=== PATIENT | female | born 1945 | race Caucasian/White ===

== ENCOUNTER → 2024-02-01 11:00 | Outpatient (REF) | payer OTHER, SELFPAY | LOC: DHVS 11:00 | PROVIDERS: ATTENDING PHYSICIAN Surgery Vascular Surgery; FAMILY PHYSICIAN Nurse Practitioner Adult Health | DX: I77.9 Disorder of arteries and arterioles, unspecified (principal) | CPT/HCPCS: 93922; 93925 ==

== ENCOUNTER → 2024-02-07 06:34 | Day surgery (SDC) | payer OTHER, SELFPAY | LOC: GI 06:34 | PROVIDERS: ATTENDING PHYSICIAN Surgery | DX: Z12.11 Encounter for screening for malignant neoplasm of colon (principal) | CPT/HCPCS: G0121 ==

== ENCOUNTER → 2024-02-10 14:03 | Outpatient (REF) | payer OTHER, SELFPAY | LOC: DHCBC HW 14:03 | PROVIDERS: ATTENDING PHYSICIAN Internal Medicine; FAMILY PHYSICIAN Nurse Practitioner Adult Health | DX: R06.02 Shortness of breath (principal) | CPT/HCPCS: 93306 ==

== ENCOUNTER → 2024-02-11 11:16 | Outpatient (REF) | payer OTHER, SELFPAY | LOC: DHCBC/DCA 11:16 | PROVIDERS: ATTENDING PHYSICIAN Internal Medicine; FAMILY PHYSICIAN Nurse Practitioner Adult Health | DX: R06.02 Shortness of breath (principal) | CPT/HCPCS: 78452; 93017; A9500; J2785 ==

== ENCOUNTER 2024-02-25 07:01 | Day surgery (SDC) | payer OTHER, SELFPAY ==
[2024-02-25] VITALS (22 sets, daily range): BP systolic 116–179; BP diastolic 14–132; BMI 52.5; BMI 23.8
[2024-02-25 07:43] LABS: Blood Urea Nitrogen 19 mg/dl (7-17); Calcium 10.5 mg/dl (8.4-10.2); Carbon Dioxide 30 mmol/L (22-30); Chloride 106 mmol/L (98-107); Estimated Creatinine Clearance 58 ml/min; Glucose 86 mg/dl (70-99); Potassium 3.6 mmol/L (3.5-5.1); Sodium 140 mmol/L (135-145); eGFR 56.95
[2024-02-25 07:45] LABS: APTT 29.3 Sec (23.4-35.0); Hematocrit 32.7 % (37.0-47.0); Hemoglobin 10.3 g/dL (12.0-16.0); INR 1.09; Mean Corp Hgb Conc. 31.5 g/dL (33.0-37.0); Mean Corpuscular Hgb 26.3 pg (27.0-31.0); Mean Corpuscular Volume 83.6 fL (81.0-99.0); Mean Platelet Volume 11.8 fL (7.4-10.4); PT 13.9 Sec (11.4-14.6); Platelet Count 231 10^3/uL (130-400); Red Blood Cell Count 3.91 10^6/uL (4.20-5.40); Red Cell Dist. Width 14.4 % (11.5-14.5); White Blood Cell Count 6.3 10^3/uL (4.8-10.8)
[2024-02-25] MEDS: NSS 177 ML IV (08:03)
--- NOTE | 2024-02-25 08:29 | W.SUR.PREOP ---
Pre-Operative Surgical Note
-
I have examined this patient prior to the performance of the scheduled procedure.
The patient's condition is unchanged from the time of the current History and
Physical and the patient is able to undergo the scheduled procedure.
--- NOTE | 2024-02-25 09:43 | W.IMMPOSTOP ---
Surgical Immed Post Op Note
-
Primary Surgeon: Karlo Rodriguez III, MD
Assisting Surgeon: Isiah Gonzalez MD
Pre-op Diagnosis: PAD
Post-op Diagnosis: PAD
Procedure Performed: Left external iliac IV lithotripsy & stenting, left profunda IV lithotripsy
Anesthesia Type: Sedation
Specimen / Cultures: NA
Estimated Blood Loss: 2cc
Complications: NA
Operative Findings:
Access obtained via right common femoral artery. Angiogram of LLE demonstrated significantly diseased external iliac and severely stenosed ostial profunda disease. IV lithotripsy x90 pulses followed by balloon angioplasty applied to profunda. IV
lithotripsy x160 pulses of external iliac followed by deployment of a [id number] express stent to the external iliac. Post-deployment angiogram demonstrated brisk flow.
--- NOTE | 2024-02-25 20:04 | OR.RPT ---
Operative Report
Operative Report
Date of Operation: 02/25/2024
Pre Op Diagnosis: Peripheral arterial disease with abnormal surveillance duplex, left lower extremity
Post Op Diagnosis: Peripheral arterial disease with abnormal surveillance duplex, left lower extremity
Procedure:
1.) Intravascular lithotripsy of left profunda femoral artery stenosis (7 mm x 60 mm M5+ shockwave balloon)
2.) Intravascular lithotripsy of left external iliac artery stenosis (7 mm x 60 mm M5+ shockwave balloon)
3.) Balloon angioplasty and stenting of left external iliac artery stenosis (7 mm x 37 mm Express LD)
4.) Diagnostic [id number] arteriogram
5.) Diagnostic left lower extremity arteriogram
6.) Ultrasound guided percutaneous access to the right common femoral artery
Surgeon: Karlo Rodriguez III, MD
It Network Administrator: Isiah Gonzalez MD PGY-1
Anesthesia: Sedation with local
Fluoroscopy:
26.3 min
531 mGy
74.19 Gy.cm2
Complications: None
Estimated Blood Loss: Less than 20 cc
History and Indications for Procedure: 78 yo female with PAD and left lower extremity bypass. Abnormal surveillance duplex.
Procedure in Detail: Erin Yeh was correctly identified and placed supine on the operating table. After adequate induction of anesthesia the bilateral groins were prepped and draped in the usual sterile fashion. A timeout was performed with
the nursing and anesthesia staff confirming the patient's identity as well as the nature and laterality of the procedure.
The right common femoral artery was identified under ultrasound guidance. The artery was patent. The superior and inferior aspects of the femoral head were identified with radiographic guidance and marked at the skin level. The proposed puncture
site was infiltrated with local anesthesia. We saved a copy of the ultrasound image to the medical record. Under ultrasound guidance we accessed the [ ] common femoral artery with a micropuncture needle and upsized to a 5 Fr sheath over a eNeura Therapeutic[employer]
wire. The wire and a ShepherGeoSentric hook flush catheter were advanced into the distal abdominal aorta and a diagnostic aorto-biiliac arteriogram was performed:
AORTO-ILIAC ARTERIOGRAM:
Aorta: Patent. Calcified plaque at the aortic bifurcation near the origin of the right DEVANTE contributing to a moderate stenosis
Right common iliac artery: Calcified diffusely. Plaque at the distal aorta/DEVANTE origin contributing to a moderate stenosis
Right external iliac artery: Patent
Left common iliac artery: Patent
Left external iliac artery: Focal calcified plaque at the iliac bifurcation involving the internal iliac artery and proximal external iliac artery. High grade stenosis.
Under roadmap guidance using a Glidewire and the TempMine hook catheter we selected the left common iliac artery and then the external iliac artery. A catheter was tracked up and over the aortic bifurcation and placed in the distal external iliac
artery. A diagnostic left lower extremity arteriogram was then performed which demonstrated the following:
LEFT LOWER EXTREMITY:
Common femoral artery: Patent. No significant stenosis identified
Profunda femoral artery: Patent. Focal high grade stenosis proximally.
Bypass: Patent. Proximal and distal anastomoses patent with no stenosis identified. Vein conduit widely patent.
Tibial runoff via patent anterior tibial artery and peroneal artery. Diffusely calcified.
ENDOVASCULAR INTERVENTION: Systemic heparin was administered. Exchanged out for a 7 Fr 45 sheath over a StorSendtoNews wire. Selected the profunda femoral artery under roadmap guidance with Quickcross catheter and glidewire. The proximal profunda stenosis
was crossed. The wire and catheter were advanced into the more distal profunda femoral artery and subtraction angio confirmed proper position in the true lumen. Exchanged out for a 0.014 wire.Due to the heavily calcified nature of the arterial
disease and in an effort to modify the calcium to achieve maximum luminal gain with endovascular intervention I elected to proceed with intravascular lithotripsy. A 7 mm x 60 mm M5+ Shockwave balloon was placed across the profunda femoral artery
stenosis under roadmap guidance. Alternating rounds of lithotripsy pulse delivery at sub-nominal pressure and angioplasty at nominal pressure was performed across the stenosis. In between rounds of pulse delivery and angioplasty the balloon was
deflated and repositioned under roadmap guidance. This balloon was also used to treat the calcified stenosis at the iliac bifurcation and proximal external iliac artery. All 300 pulses were delivered.
I then brought into position a 7 mm x 37 mm Express LD stent and positioned this across the iliac bifurcation/external iliac artery stenosis under roadmap guidance. The stent was deployed and the delivery system removed over the wire.
COMPLETION ARTERIOGRAM: Excellent technical result. Widely patent iliac stent. Significantly improvement in the profunda femoral artery stenosis. Brisk flow. Patent bypass.
Satisfied with this result we concluded the procedure. The sheath tip was pulled back into the right external iliac artery and secured in place.
The patient tolerated the procedure well and was taken to the recovery area in stable condition.
Attestation: I was present and responsible for the entire procedure.
Signed:
Karlo Rodriguez III, MD
[facility] Surgery
[phone] (losv)
== END 2024-02-25 16:22 | disposition home or self-care (01) ==
LOC: CATH 07:01
PROVIDERS: ATTENDING PHYSICIAN Surgery Vascular Surgery; OTHER PHYSICIAN Internal Medicine
DX: I70.302 Unspecified atherosclerosis of unspecified type of bypass graft(s) of the extremities, left leg (principal); I70.203 Unspecified atherosclerosis of native arteries of extremities, bilateral legs; Z79.82 Long term (current) use of aspirin; I10 Essential (primary) hypertension; E78.5 Hyperlipidemia, unspecified; E03.9 Hypothyroidism, unspecified; Z87.891 Personal history of nicotine dependence; Z98.890 Other specified postprocedural states; R93.6 Abnormal findings on diagnostic imaging of limbs
CPT/HCPCS: C9764; 75710; 75716; 76937; 80048; 85027; 85610; 85730; 86850; 86900; 86901; C1769; C1876; C1894; Q9967

== ENCOUNTER 2024-03-20 12:45 | Emergency (ER) | payer OTHER, SELFPAY ==
[2024-03-20 12:48] VITALS: BP 170/71
[2024-03-20 13:10] LABS: % Basophils 0.6 % (0-2); % Eosinophils 5.7 % (0-6); % Immature Granulocytes 0.3 % (0-0.5); % Lymphocytes 13.3 % (20.5-51.1); % Monocytes 9.5 % (1.7-9.3); % Neutrophils 70.6 % (42.2-75.2); Absolute Eosinophils 0.4 10^3/uL (0-0.7); Absolute Lymphocytes 0.9 10^3/uL (1.2-3.4); Absolute Monocytes 0.7 10^3/uL (0.1-0.6); Absolute Neutrophils 4.8 10^3/uL (1.4-6.5); Hemoglobin 10.3 g/dL (12.0-16.0); Mean Corp Hgb Conc. 31.2 g/dL (33.0-37.0); Mean Corpuscular Hgb 25.9 pg (27.0-31.0); Mean Corpuscular Volume 83.1 fL (81.0-99.0); Nucleated Red Blood Cells % 0 %; Platelet Count 174 10^3/uL (130-400); Red Blood Cell Count 3.97 10^6/uL (4.20-5.40); Red Cell Dist. Width 14.6 % (11.5-14.5); White Blood Cell Count 6.8 10^3/uL (4.8-10.8)
[2024-03-20 13:22] LABS: ALT (SGPT) 14 U/L (0-35); AST (SGOT) 25 U/L (14-36); Albumin 3.5 g/dl (3.5-5.0); Alkaline Phosphatase 102 U/L (38-126); Blood Urea Nitrogen 15 mg/dl (7-17); Calcium 10.1 mg/dl (8.4-10.2); Carbon Dioxide 27 mmol/L (22-30); Chloride 108 mmol/L (98-107); Glucose 100 mg/dl (70-99); Potassium 4.6 mmol/L (3.5-5.1); Sodium 138 mmol/L (135-145); Total Bilirubin 0.7 mg/dl (0.2-1.3); Total Protein 5.9 g/dl (6.3-8.2); eGFR > 60.00
--- NOTE | 2024-03-20 16:36 | ED.GENMED ---
History of Present Illness
General
Chief Complaint: Fall
Time Seen by Provider: 03/20/24 16:36
Travel History
Have you had any contact with someone who has COVID-19?: No
Do you have any symptoms of coronavirus? Fever > 100 degrees, chills, cough, shortness of breath, sore throat, loss of taste or smell, muscle aches, or headache?: No
History of Present Illness
History of Present Illness:
HPI: The patient passed out yesterday while in the shower. She continues to feel somewhat weak. She was seen at [facility] yesterday. She does not think that she had an interrogation of the iKONVERSE pacer. She has not had any chest pain. She had
imaging studies yesterday. She was also concerned because her systolic blood pressures over 200. Son and patient tells me that she is not on any blood pressure medication and these were removed however her med list currently includes amlodipine
and metoprolol. She did have some back pain from the fall yesterday.
EXAM:
GENERAL: Well appearing in no distress
HEENT: Moist oral mucosa
CARDIOVASCULAR: No murmurs, normal heart rate, regular rhythm, No chest wall tenderness
PULMONARY: No respiratory distress, breath sounds are clear and equal
ABDOMEN: Soft with no peritoneal signs, no tenderness
NEUROLOGIC: Excellent strength all extremities, no coordination deficits
PSYCHIATRIC: Appropriate mental status, normal insight and judgement
EXTREMITIES: Nontender, no edema, moves all extremities equally
SKIN: No rash, no lesions
TIME OF INITIAL ENCOUNTER:
NUMBER AND COMPLEXITY OF PROBLEMS ADDRESSED AT THE ENCOUNTER
� Chronic conditions affecting care: Has had DVT, high blood pressure, hyperlipidemia, lymphedema, diverticular disease, anxiety
� Acute Exacerbation and/or Progression of Chronic Illness: This is an acute problem
� Differential Diagnosis includes: Fully controlled high blood pressure, dysrhythmia, electrolyte abnormality
AMOUNT AND/OR COMPLEXITY OF DATA TO BE REVIEWED AND ANALYZED
� I performed an independent evaluation of and my interpretation is:
EKG: A paced, ventricular rate 65
CT:
X-rays:
Laboratory Studies: CBC shows a normal white count hemoglobin 10.3 which is at baseline, chemistries unremarkable
Other:
� Review of other/old records: I reviewed the records from [facility], she had CT of the head, cervical spine, and abdomen pelvis all of which were unremarkable for trauma.
� Clinical information was obtained by an independent historian: I spoke to the son at bedside
� Prescriptions/Medications Considered but not given:
� Further testing considered but not performed:
RISK OF COMPLICATIONS AND/OR MORBIDITY OR MORTALITY OF PATIENT MANAGEMENT
� Social determinants of health affecting care: Lives at home
� Discussion with other providers:
� Escalation of care including admission/observation vs risk of discharge considered: The patient is well-appearing, she is slightly hypertensive and is compliant with her medication. I have asked for interrogation of iKONVERSE
device. The patient's blood pressure was elevated at [facility], elevated in the ED today, and elevated at home. Will have her increase her amlodipine dose to a full 10 mg from 5 mg. We did go over the risk of potential increased lower extremity
edema which she has had in the past. She is to follow-up with PMD. At her request I have also given her the contact information for another PMD.
Past History
Past History
ED Past Medical History: HTN, Hypercholesterolemia, Other (peripheral vascular disease) and Other (DVT)
ED Past Surgical History: Appendectomy and Cardiac
Social History
Tobacco: Non-smoker
Alcohol: None
Drug: None
Personal: Single
Living: with family
Family History
Family History: Other
Phy Exam
Physical Exam
Physical Exam:
See HPI
Course
Orders/Labs/Results
Orders:
Orders
03/20/24 12:57
Complete Blood Count/With Diff Urgent
Comprehensive Metabolic Panel Urgent
03/20/24 16:37
Electrocardiogram (*1) Urgent
Reason for Study: Syncope
EKG- Treatment ONCE
03/20/24 16:48
Interrogate Pacemaker- Treatment ONCE
Abnormal Lab Results
03/20/24
12:57
RBC 3.97 L 10^6/uL
(4.20-5.40)
Hgb 10.3 L g/dL
(12.0-16.0)
Hct 33.0 L %
(37.0-47.0)
MCH 25.9 L pg
(27.0-31.0)
MCHC 31.2 L g/dL
(33.0-37.0)
RDW 14.6 H %
(11.5-14.5)
MPV 11.0 H fL
(7.4-10.4)
Absolute Lymphs (auto) 0.9 L 10^3/uL
(1.2-3.4)
Absolute Monos (auto) 0.7 H 10^3/uL
(0.1-0.6)
Lymphocytes % 13.3 L %
(20.5-51.1)
Monocytes % 9.5 H %
(1.7-9.3)
Chloride 108 H mmol/L
(98-107)
Glucose 100 H mg/dl
(70-99)
Total Protein 5.9 L g/dl
(6.3-8.2)
03/20/24 12:57
03/20/24 12:57
Vital Signs
Initial and Last Documented VS:
Initial Vital Signs
Temp Pulse Resp BP Pulse Ox
98.2 F 82 18 170/71 100
03/20/24 12:48 03/20/24 12:48 03/20/24 12:48 03/20/24 12:48 03/20/24 12:48
Last Documented Vital Signs
Temp Pulse Resp BP Pulse Ox
98.2 F 82 18 170/71 100
03/20/24 12:48 03/20/24 12:48 03/20/24 12:48 03/20/24 12:48 03/20/24 12:48
*Critical Care Note
Total Time (30-74mins, 75-104mins- exclusive of procedures): Not Applicable
ED Attending Note
-
Portions of this chart may have been created with voice recognition software.� Occasional wrong word or��sound alike� substitutions may have occurred due to the inherent limitations of voice recognition software.
Discharge Plan
Departure
Patient Disposition: Home (Routine Discharge)
Date of Disposition: 03/20/24
Time of Disposition: 17:22
Patient with high blood pressure during this ER visit?: Yes
Discharge Problem:
Syncope and collapse
Instructions: Syncope (Fainting) (DC), BLOOD PRESSURE
Prescriptions:
No Action
sucralfate [Carafate] 1 GM tablet
1 gm PO QID
aspirin [Ecotrin Low Strength] 81 MG tablet,delayed release (DR/EC)
81 mg PO DAILY
pantoprazole 40 MG tablet,delayed release (DR/EC)
40 mg PO BID
levothyroxine 125 MCG tablet
125 mcg PO DAILY@07
metoprolol succinate 25 MG tablet extended release 24 hr
25 mg PO DAILY
hydroxychloroquine [Plaquenil] 200 MG tablet
200 mg PO BID
citalopram 10 MG tablet
10 mg PO DAILY
methylprednisolone 4 mg Tablet
4 mg PO DAILY
amlodipine 10 mg Tablet
5 mg PO NOON
furosemide 20 mg Tablet
20 mg PO QNOON
naproxen sodium [Aleve] 220 mg Tablet
500 mg PO DAILY PRN (Reason: pain)
potassium chloride [Klor-Con M20] 20 mEq tablet,ER particles/crystals
20 meq PO BID
ezetimibe [Zetia] 10 mg Tablet
10 mg PO DAILY
Referrals:
Susu Piña, ASAD [Family Provider] -
Beronica Jones, [Active] - Follow up in 1 week
Activity Restrictions/Additional Instructions:
The cause of your symptoms is unclear. I did speak to a [employer] national account representative who was able to interrogate the device and he seen no sign of abnormality of any dysrhythmia that happened yesterday. The cause of your passing out is unclear. Your
hemoglobin and other basic blood count are similar to baseline. Your EKG shows an atrially paced rhythm. I recommend that you increase the amlodipine to a full 10 mg dose daily�potential side effect is increased swelling�talk to your primary care
doctor for follow-up. Return here if worse. I have given you the contact info for another local PMD.
Interventions
Interventions:
*Risk Screen - Suicide Last Done: 03/20/24 12:48
*General Assessment Last Done: 03/20/24 12:48
*Neglect/Abuse Screening Last Done: 03/20/24 12:48
*ED COVID-19 Vaccine History Last Done: 03/20/24 12:48
ED-Musculoskeletal Assessment Last Done: 03/20/24 17:16
ED- Neurological Assessment Last Done: 03/20/24 17:16
ED-Skin Assessment Last Done: 03/20/24 17:16
Discharge Date and Time
Print Language: ARABIC
[2024-03-20 17:27] VITALS: BP 182/130
== END 2024-03-20 17:41 | disposition home or self-care (01) ==
LOC: EMR 12:45
PROVIDERS: Student in an Organized Health Care Education/Training Program; EMERGENCY PHYSICIAN Emergency Medicine; FAMILY PHYSICIAN Nurse Practitioner Adult Health
DX: R55 Syncope and collapse (principal); E78.00 Pure hypercholesterolemia, unspecified; I10 Essential (primary) hypertension; I73.9 Peripheral vascular disease, unspecified; Z86.718 Personal history of other venous thrombosis and embolism; Z90.49 Acquired absence of other specified parts of digestive tract; Z95.0 Presence of cardiac pacemaker
CPT/HCPCS: 99283; 80053; 85025; 93005

== ENCOUNTER 2024-03-27 21:36 | Inpatient (IN) | payer OTHER, SELFPAY ==
[2024-03-27] VITALS (15 sets, daily range): BP systolic 121–166; BP diastolic 47–118; PULSE 69–93; BMI 22.5; BMI 21.5
[2024-03-27 15:53] LABS: % Basophils 0.4 % (0-2); % Eosinophils 1.7 % (0-6); % Immature Granulocytes 0.3 % (0-0.5); % Lymphocytes 11.6 % (20.5-51.1); % Monocytes 6.9 % (1.7-9.3); % Neutrophils 79.1 % (42.2-75.2); Absolute Eosinophils 0.1 10^3/uL (0-0.7); Absolute Lymphocytes 0.8 10^3/uL (1.2-3.4); Absolute Monocytes 0.5 10^3/uL (0.1-0.6); Absolute Neutrophils 5.6 10^3/uL (1.4-6.5); Hematocrit 33.5 % (37.0-47.0); Hemoglobin 10.7 g/dL (12.0-16.0); Mean Corp Hgb Conc. 31.9 g/dL (33.0-37.0); Mean Corpuscular Hgb 26.2 pg (27.0-31.0); Mean Corpuscular Volume 82.1 fL (81.0-99.0); Nucleated Red Blood Cells % 0 %; Platelet Count 230 10^3/uL (130-400); Red Blood Cell Count 4.08 10^6/uL (4.20-5.40); Red Cell Dist. Width 14.2 % (11.5-14.5); White Blood Cell Count 7.1 10^3/uL (4.8-10.8)
[2024-03-27 15:59] LABS: ALT (SGPT) 14 U/L (0-35); AST (SGOT) 22 U/L (14-36); Albumin 3.4 g/dl (3.5-5.0); Alkaline Phosphatase 129 U/L (38-126); Blood Urea Nitrogen 23 mg/dl (7-17); Carbon Dioxide 28 mmol/L (22-30); Chloride 109 mmol/L (98-107); Estimated Creatinine Clearance 25 ml/min; Glucose 114 mg/dl (70-99); Potassium 3.8 mmol/L (3.5-5.1); Sodium 139 mmol/L (135-145); Total Bilirubin 0.5 mg/dl (0.2-1.3); Total Protein 6.1 g/dl (6.3-8.2)
--- NOTE | 2024-03-27 16:09 | ED.GENMED ---
History of Present Illness
General
Chief Complaint: Fainting/Passed Out
Source: patient
Exam Limitations: none
Time Seen by Provider: 03/27/24 15:29
Nursing documentation reviewed up to this point in time: agreed with
Travel History
Have you had any contact with someone who has COVID-19?: No
Do you have any symptoms of coronavirus? Fever > 100 degrees, chills, cough, shortness of breath, sore throat, loss of taste or smell, muscle aches, or headache?: No
History of Present Illness
History of Present Illness:
79 y/o F with h/o PAD s/p L feb bypass 02/19 dr. justice, dvt previously not anticoagulated,
here with syncope x 2 today
just after showering pt got on the toilet and felt 'funny' like she was lightheaded. tried to get her clothes on and walk to her room and passed out suddenly. daughter whom she lives with heard the thump and came to her and she was awake
then stood her up and she syncopized a second time and looked like she was shaking briefly
came to and has been awake and alert since
no preceding chestp ain
has had ongoing GUTIERREZ for a while that has progressed
is on lasix daily
has some pain in her Left calf after her bypass a few weeks ago, not worse than usual
is supposed to be using her pneumatic compressive device but it was broken
no fever, chills
pt passed out on 03/19 while in her shower chair and
Past History
Past History
ED Past Medical History: HTN, Hypercholesterolemia, Other (peripheral vascular disease) and Other (DVT)
ED Past Surgical History: Appendectomy and Cardiac
Social History
Tobacco: Non-smoker
Alcohol: None
Drug: None
Personal: Single
Living: with family
Family History
Family History: Other
Review of Systems
Review of Systems
Allergies reviewed?: Yes
All Other Systems: Not applicable
Phy Exam
Physical Exam
Physical Exam:
GENERAL: Alert , in no apparent distress
EYE: pupils equal and reactive , pale
NECK: Supple
ENT: o/p clr, mmm.
CARDIAC: Regular rate and rhythm .mild edema Left lower leg
LUNGS: Clear breath sounds bilaterally, no acute respiratory distress, no wheezes/rales/rhonchi
ABDOMEN: Soft, without focal tenderness, no r/g, no cvat, normal bowel sounds
NEUROLOGICAL: Alert and oriented, no focal neuro deficits, normal strength and sensation
SKIN: Warm and dry, skin intact. mutliple bruises arms/legs
MUSCULOSKELETAL: minimal LLE edema, well perfused. neg sunny's sign
PSYCH: Normal and appropriate interaction.
Course
Orders/Labs/Results
Orders:
Orders
03/27/24 15:30
EKG [Electrocardiogram (*1)] Urgent
Reason for Study: Vertigo / Dizzy
EKG- Treatment ONCE
03/27/24 15:36
Complete Blood Count/With Diff Urgent
Comprehensive Metabolic Panel Urgent
NT-proBNP Urgent
Comment: ADD
Troponin I Urgent
03/27/24 16:15
Orthostatic VS- Treatment ONCE
03/27/24 16:30
CT Chest Pe Study Urgent
Comment:
Reason For Exam: syncope, sob
0.9% Sodium Chloride 500 ml [Nss] 500 ml IV BOLUS
03/27/24 16:35
Add On- LAB Urgent
Tests Added?: pro BNP
Abnormal Lab Results
03/27/24
15:36
RBC 4.08 L 10^6/uL
(4.20-5.40)
Hgb 10.7 L g/dL
(12.0-16.0)
Hct 33.5 L %
(37.0-47.0)
MCH 26.2 L pg
(27.0-31.0)
MCHC 31.9 L g/dL
(33.0-37.0)
MPV 11.0 H fL
(7.4-10.4)
Absolute Lymphs (auto) 0.8 L 10^3/uL
(1.2-3.4)
Neutrophils % 79.1 H %
(42.2-75.2)
Lymphocytes % 11.6 L %
(20.5-51.1)
Chloride 109 H mmol/L
(98-107)
BUN 23 H mg/dl
(7-17)
Creatinine 1.4 H mg/dL
(0.6-1.0)
Glucose 114 H mg/dl
(70-99)
Alkaline Phosphatase 129 H U/L
(38-126)
Total Protein 6.1 L g/dl
(6.3-8.2)
Albumin 3.4 L g/dl
(3.5-5.0)
03/27/24 15:36
03/27/24 15:36
Vital Signs
Initial and Last Documented VS:
Initial Vital Signs
Pulse Resp BP Pulse Ox
82 15 156/59 100
03/27/24 15:31 03/27/24 15:31 03/27/24 15:31 03/27/24 15:31
Last Documented Vital Signs
Temp Pulse Resp BP Pulse Ox
98.5 F 68 20 129/52 98
03/27/24 15:33 03/27/24 19:23 03/27/24 19:23 03/27/24 19:23 03/27/24 19:20
MDM/Problems Addressed
Differential Diagnosis Includes:
orthostasis, PE, cardiac dysrhythmia
MDM/Problems Addressed:
79 ny/o F with ho pacer, RA, PAD, PVD, htn
here with syncope x 2 today
and passed out 1 week ago as well
felt lightheaded prior to passing uot
no trauma from the syncope today
paced rhythm
pacer interrogated ([employer]) and i spoke with the outboard technician who did not see any events today, nor from 03/19
but she did have 2 events 4/4 and 4/8 NSVT but didn't apss out those days
on exam she is pale but awake alert
minimal edma in legs
pulses present
hg stable
+ orthostatics
pe study neg
reassessed after ivf 500 ml NS
still dropping significantly with standing
will admit
*Critical Care Note
Total Time (30-74mins, 75-104mins- exclusive of procedures): Not Applicable
ED Attending Note
-
Portions of this chart may have been created with voice recognition software.� Occasional wrong word or��sound alike� substitutions may have occurred due to the inherent limitations of voice recognition software.
Discharge Plan
Departure
Patient Disposition: Admit
Date of Disposition: 03/27/24
Time of Disposition: 20:21
Admit to: Telemetry
Presentation/result/management discussed w/ accepting MD/DO: Hospitalist
Condition: Fair
Covid-19: Not Applicable
Discharge Problem:
Syncope, Orthostasis
Prescriptions:
No Action
sucralfate [Carafate] 1 GM tablet
1 gm PO QID
aspirin [Ecotrin Low Strength] 81 MG tablet,delayed release (DR/EC)
81 mg PO DAILY
pantoprazole 40 MG tablet,delayed release (DR/EC)
40 mg PO BID
levothyroxine 125 MCG tablet
125 mcg PO DAILY@07
metoprolol succinate 25 MG tablet extended release 24 hr
25 mg PO DAILY
hydroxychloroquine [Plaquenil] 200 MG tablet
200 mg PO BID
citalopram 10 MG tablet
10 mg PO DAILY
methylprednisolone 4 mg Tablet
4 mg PO DAILY
amlodipine 10 mg Tablet
5 mg PO NOON
furosemide 20 mg Tablet
20 mg PO QNOON
naproxen sodium [Aleve] 220 mg Tablet
500 mg PO DAILY PRN (Reason: pain)
potassium chloride [Klor-Con M20] 20 mEq tablet,ER particles/crystals
20 meq PO BID
ezetimibe [Zetia] 10 mg Tablet
10 mg PO DAILY
Referrals:
Susu Piña NP [Family Provider] -
Interventions
Interventions:
*Risk Screen - Suicide Last Done: 03/27/24 15:28
*General Assessment Last Done: 03/27/24 15:28
*Neglect/Abuse Screening Last Done: 03/27/24 15:28
*ED COVID-19 Vaccine History Last Done: 03/27/24 15:28
ED- Cardiac Assessment Last Done: 03/27/24 15:31
ED- Neurological Assessment Last Done: 03/27/24 15:31
Discharge Date and Time
Print Language: ICELANDIC
[2024-03-27 16:11] LABS: Troponin I < 0.012 ng/ml
[2024-03-27] MEDS: NSS 500 IV (16:47)
[2024-03-27 17:21] LABS: NT-proBNP 806 pg/ml
--- NOTE | 2024-03-27 20:35 | HPS.HSE ---
Family Physician
-
Family Physician: Susu Piña
Chief Complaint
-
syncope
History of Present Illness
79 year old with pMH for PAD s/p L fem bypass, hypertension, DVT presented to us with syncopal episode at home. patient had a syncopal episode last week, while taking shower. she get her head, neck and shoulder she was evaluated by ER physician at
. her Norvasc was increased due to high blood pressure and was sent home. today she was walking to her room after shower, she synopsized again. her daughter got her up from the floor, she passed out in her daughters arm. patient been complaining
of dizzy for past few weeks. she is sleeping more than usual. not eating and drinking very well. denied REDDING. denied chest pain.stated chronic sob. denied abdominal pain, n,nv,d. denied dysuria or hematuria.
patient with positive orthostatics. received fluids. admitting for further management.
Medical History
Past Medical History
Past Medical History: Reports Other
Additional Past Medical History:
Lymphedema
Peripheral artery disease
Tachybradycardia syndrome
Hypertension
Hyperlipidemia
Hypothyroidism
Rheumatoid arthritis
Past Surgical History: Reports Other
Additional Past Surgical History:
Cardiac pacemaker
Stent placement in left groin
Colostomy
Social History
Tobacco: Non-smoker
Alcohol: None
Drug: None
Living: With Family
Family History
Family History: Not pertinent
Allergies / Home Medications
Allergies reflects when Allergies were last updated in [facility].
Home Medications with original date entered in [facility]
Allergy/Medication List:
Allergies
Allergy/AdvReac Type Severity Reaction Status Date / Time
No Known Allergies Allergy Verified 03/20/24 12:51
Home Medications
aspirin 81 mg tablet,delayed release (Ecotrin Low Strength) 81 mg PO DAILY Blood clot prevention/tx 07/22/18
levothyroxine 125 mcg tablet 125 mcg PO DAILY@0700 Thyroid 07/22/18
metoprolol succinate 25 mg tablet,extended release 24 hr 25 mg PO BID Heart disease/condition 07/22/18
pantoprazole 40 mg tablet,delayed release 40 mg PO BID Gastrointestinal issue 07/22/18
sucralfate 1 gram tablet (Carafate) 1 gm PO QID Gastrointestinal issue 07/22/18
citalopram 10 mg tablet 10 mg PO QPM Mental health 05/20/22
hydroxychloroquine 200 mg tablet (Plaquenil) 200 mg PO BID Rheumatoid arthritis 05/20/22
methylprednisolone 4 mg tablet 4 mg PO DAILY Anti-inflammatory 06/12/22
amlodipine 10 mg tablet 10 mg PO NOON Heart disease/condition 07/28/22
furosemide 20 mg tablet 20 mg PO Q48H@1200 Fluid Retention/Swelling 11/10/22
naproxen sodium 220 mg tablet (Aleve) 220 mg PO DAILY PRN mild pain 11/12/23
potassium chloride 20 mEq tablet,extended release(part/cryst) (Klor-Con M) 20 meq PO BID Electrolyte Repletion 11/13/23
ezetimibe 10 mg tablet (Zetia) 10 mg PO QPM 02/25/24
cyanocobalamin (vitamin B-12) 1,000 mcg tablet (Vitamin B-12) 1,000 mcg PO DAILY 03/27/24
melatonin 5 mg tablet 5 mg PO HS PRN sleep 03/27/24
Review of Systems
-
Constitutional: Reports No Symptoms
EENT: Reports No Symptoms
Respiratory: Reports No Symptoms
Cardiac: Reports Syncope
Abdomen/GI: Reports No Symptoms
: Reports No Symptoms
Musculoskeletal: Reports No Symptoms
Skin: Reports No Symptoms
Neurological: Reports Dizzy
Endocrine: Reports No Symptoms
Hematologic/Lymphatic: Reports No Symptoms
Psych: Reports No Symptoms
Physical Exam
Vital Signs
Vital Signs
Temp Pulse Resp BP Pulse Ox
98.5 F 68 20 129/52 98
03/27/24 15:33 03/27/24 19:23 03/27/24 19:23 03/27/24 19:23 03/27/24 19:20
Physical Exam
General: Well Developed, Well Nourished and No Apparent Distress
HEENT: NormoCephalic, Moist mucous membranes and Atraumatic
Respiratory: Clear
Cardiac: S1/S2 and Regular Rhythm; No Murmur or Rub
GI: Soft, Non Tender, Non Distended and Normal Bowel Sounds; No Organomegaly
Rectal: Deferred by Provider
Musculoskeletal: No Clubbing, No Cyanosis and No Edema
Skin: No Rash
Neuro: AO x 3 and Nonfocal/grossly intact
Psych: Calm
Laboratory Results
-
03/27/24 15:36
03/27/24 15:36
Laboratory Results
Total Bilirubin 0.5 mg/dl (0.2-1.3) 03/27/24 15:36
AST 22 U/L (14-36) 03/27/24 15:36
ALT 14 U/L (0-35) 03/27/24 15:36
Alkaline Phosphatase 129 U/L (38-126) H 03/27/24 15:36
Troponin I < 0.012 ng/ml 03/27/24 15:36
Data Reviewed
-
Lab Data: Labs Reviewed by me
Impression/Plan
-
#syncope likely from orthostatics/dehydration
-pacer interrogated in ER, with no events
-EKG atrial paced rhythm
-CT PE negative
-fluids in ER
-fluids continued
-monitor orthostatics
-claudia stocking
# Anemia of chronic disease
- hemoglobin stable at 10.7
-No active bleeding
-Continue to monitor
# Acute kidney injury likely dehydration
-Creatinine 1.4
-Fluids continued
-Monitor BMP in am
#Essential hypertension
-Amlodipine continued
-Metoprolol continued
# History of lymphedema/bilateral lower extremity edema
-Hold Lasix
#Peripheral vascular disease status post left lower extremity bypass
- aspirin
#Rheumatoid arthritis
- Resume hydroxychloroquine / methylprednisolone
-Continue tizanidine
#Neuropathy
-resume gabapentin .
#Hypercholesterolemia
-Continue Zetia
History of DVT
#Anxiety/depression
-citalopram
#Hypothyroidism
resume oral Synthroid
#GERD
-Protonix
#hxt of diverticulitis
-colostomy in place
Full code
DVT prophylaxis�SCDs
--- NOTE | 2024-03-27 21:06 | W.PN.UPDATE ---
Update Note
Progress Note Update
This is an addendum to the H&P written by ASAD Baez on 03/27/2024.
79-year-old female past medical history of sick sinus syndrome status post pacemaker, PAD status post left femoral bypass on 02/19, prior DVT, hypertension, GERD, hypothyroidism, anxiety/depression, chronic anemia, rheumatoid arthritis, neuropathy,
hyponatremia, diverticulitis with perforation and abscess status post Hollingsworth's procedure with colostomy, presenting with lightheadedness and 2 episodes of syncope.
Recently in the emergency room last week for syncope and systolic blood pressure in the 200s status post increase amlodipine to 10 mg.
Pacemaker interrogated which did not show any events. Orthostatic vital signs positive likely due to decreased p.o. intake/diuretic use. CT PE does not show any abnormality. Labs show prerenal SHARI. Hold Lasix, IV fluids. Recheck orthostatics in
the morning.
[2024-03-27] MEDS: NSS 1000 IV (23:42)
[2024-03-28] VITALS (7 sets, daily range): BP systolic 129–170; BP diastolic 58–88; PULSE 70–72; BMI 21.5
[2024-03-28] MEDS: KCL 20 MEQ PO ×4 (00:42→20:16)
[2024-03-28] MEDS: CELEXA 10 MG PO ×2 (00:43→17:29)
[2024-03-28] MEDS: PROTONIX 40 MG PO ×3 (00:43→20:14)
[2024-03-28] MEDS: ZETIA 10 MG PO ×2 (00:43→17:29)
[2024-03-28] MEDS: PLAQUENIL 200 MG PO ×3 (00:43→20:17)
[2024-03-28] MEDS: CARAFATE 1 GRAM PO ×5 (00:44→20:23)
[2024-03-28] MEDS: TOPROL XL 25 MG PO ×3 (00:44→20:14)
[2024-03-28] MEDS: LOVENOX 30 MG SC ×2 (00:45→17:30)
--- NOTE | 2024-03-28 03:43 | PTCARENOTE ---
Pt admitted to unit from ED. Pt ambulated using rolling walker with nursing staff. Pt denies lightheadedness and dizziness. AAXO3. VS: Temp 98.4, HR 81, BP 166/76, Resp Rate 20, and O2 97 on RA. Pt oriented to room with call moon in reach. Plan of
care ongoing.
[2024-03-28] MEDS: SYNTHROID 125 MCG PO (06:07)
[2024-03-28 07:27] LABS: Hematocrit 33.5 % (37.0-47.0); Hemoglobin 10.4 g/dL (12.0-16.0); Mean Corpuscular Hgb 25.7 pg (27.0-31.0); Mean Corpuscular Volume 82.9 fL (81.0-99.0); Mean Platelet Volume 11.2 fL (7.4-10.4); Platelet Count 201 10^3/uL (130-400); Red Blood Cell Count 4.04 10^6/uL (4.20-5.40); Red Cell Dist. Width 14.2 % (11.5-14.5); White Blood Cell Count 6.4 10^3/uL (4.8-10.8)
[2024-03-28 08:00] LABS: Blood Urea Nitrogen 18 mg/dl (7-17); Calcium 9.7 mg/dl (8.4-10.2); Carbon Dioxide 28 mmol/L (22-30); Chloride 109 mmol/L (98-107); Estimated Creatinine Clearance 39 ml/min; Glucose 79 mg/dl (70-99); HDL Cholesterol 56 mg/dl; LDL Cholesterol, Calculated 88 mg/dl; Magnesium 1.7 mg/dl (1.6-2.3); Potassium 3.4 mmol/L (3.5-5.1); Sodium 139 mmol/L (135-145); Total Cholesterol 167 mg/dl (50-199); Triglyceride 119 mg/dl (10-149); Very Low Density Lipoprotein 23 mg/dl (0-30); eGFR > 60.00
[2024-03-28] MEDS: ASPIR LOW (ENTERIC COATED) 81 MG PO (08:09)
[2024-03-28] MEDS: MEDROL 4 MG PO (08:09)
--- NOTE | 2024-03-28 10:42 | W.PN.HOSP.TC ---
Today's Communication/Plan
-
Continue to hydrate cautiously with IV fluids and holding Lasix
Assess orthostatics
And have PT OT eval prior to discharge
May want to address depression as an outpatient basis as cause of her decreased oral intake and reason for dehydration
Assessment / Plan
Assessment / Plan
79-year-old female past medical history of sick sinus syndrome status post pacemaker, PAD status post left femoral bypass on 02/19, prior DVT, hypertension, GERD, hypothyroidism, anxiety/depression, chronic anemia, rheumatoid arthritis, neuropathy,
hyponatremia, diverticulitis with perforation and abscess status post Hollingsworth's procedure with colostomy, presenting with lightheadedness and 2 episodes of syncope.
Recently in the emergency room last week for syncope and systolic blood pressure in the 200s status post increase amlodipine to 10 mg.
Pacemaker interrogated which did not show any events. Pacer was also interrogated last week at her front office director appointment with Dr. Brittany Collins. She had had a recent increase in her amlodipine due to presentation of high blood pressure and had
actually syncopized last week and was sent home.
orthostatic vital signs positive likely due to decreased p.o. intake/diuretic use.
CT PE does not show any abnormality. Labs show prerenal SHARI. Hold Lasix, IV fluids. Recheck orthostatics in the morning.
#syncope likely from orthostatics/dehydration
-pacer interrogated in ER, with no events/look to cardiology's Dr. Brittany Collins who saw her last week doubt cardiogenic cause
-EKG atrial paced rhythm
-CT PE negative
-fluids in ER
-fluids continued
-monitor orthostatics
-claudia stocking
# Anemia of chronic disease
- hemoglobin stable at 10.7
-No active bleeding
-Continue to monitor
# Acute kidney injury likely dehydration
-Creatinine 1.4
-Fluids continued
-Monitor BMP in am
-Check orthostatics again/PT/OT eval
#Essential hypertension
-Amlodipine continued
-Metoprolol continued
# History of lymphedema/bilateral lower extremity edema
-Hold Lasix another day
#Peripheral vascular disease status post left lower extremity bypass
- aspirin
#Rheumatoid arthritis
- Resume hydroxychloroquine / methylprednisolone
-Continue tizanidine
# Depression
-Poor oral intake and nutrition of late
-Admits to possible underlying depression but wants to seek help with her PCP and not be evaluated by psych care
Patient is already on Celexa
#Neuropathy
-resume gabapentin .
#Hypercholesterolemia
-Continue Zetia
History of DVT
#Anxiety/depression
-citalopram
#Hypothyroidism
resume oral Synthroid
#GERD
-Protonix
#hxt of diverticulitis
-colostomy in place
Full code
DVT prophylaxis�SCDs
Anticipated Discharge: Within 24 hours
Subjective/Interval History
-
Date of Service: March 28, 2024
Patient states she is feeling better but has not been out of bed yet denies any nausea denies chest pain denies shortness of breath
Objective Data
-
Labs:
Laboratory Results
03/28/24
06:54
WBC 6.4
Hgb 10.4 L
Hct 33.5 L
Plt Count 201
Sodium 139
Potassium 3.4 L
Chloride 109 H
Carbon Dioxide 28
BUN 18 H
Creatinine 0.9
Glucose 79
Calcium 9.7
Vital Signs:
Vital Signs
Temp Pulse Resp BP Pulse Ox
97.7 F 61 20 154/73 98
03/28/24 07:00 03/28/24 08:10 03/28/24 07:00 03/28/24 08:10 03/28/24 07:00
I&O
03/27/24 03/28/24 03/29/24
06:59 06:59 06:59
Intake Total 120 / 120
Balance 120 / 120
Review of Systems
-
History Source: Patient
All other systems: Reviewed and negative
Constitutional: Reports Weakness
EENT: Reports No Symptoms Reported
Respiratory: Reports No Symptoms
Abdomen/GI: Reports No Symptoms
Physical Exam
-
General: Well Developed
HEENT: Normocephalic
Respiratory: Clear to Auscultation
Cardiac: Regular Rhythm
GI: Soft and Nontender
Neuro: Awake and Alert
Psych: Calm
Data Reviewed
-
Total Time Spent with Patient (in minutes): 45
Labs: Labs Reviewed by me (10.4 hgb/white count normal 6.4/potassium 3.4/BUN of 18)
[2024-03-28] MEDS: NORVASC 10 MG PO (11:31)
--- NOTE | 2024-03-28 15:27 | CM ---
Patient seen bedside with haylieeceSarah, initial assessment completed. Patient reports she resides with her niece and nieces two daughters in a multiple story home, two steps to enter. Patient reports she has a cane and walker at home, interested in
obtaining a stair glide and have a script from patients vascular provider. Patient has a history of [facility], [facility]. Patient confirmed PCP Susu Piña, pharmacy [facility] Heather Garcia, confirms prescription coverage. Patient denies food
insecurities. CM will continue to follow for discharge planning needs, watch for PT evaluations.
Plan; home no needs vs VN, watch for PT evals.
[2024-03-28] MEDS: NSS 1000 IV (16:15)
[2024-03-29 03:31] VITALS: BP 137/57
[2024-03-29] MEDS: NSS 1000 IV (05:05)
[2024-03-29] MEDS: SYNTHROID 125 MCG PO (05:08)
[2024-03-29 07:34] LABS: Blood Urea Nitrogen 19 mg/dl (7-17); Calcium 9.5 mg/dl (8.4-10.2); Carbon Dioxide 26 mmol/L (22-30); Chloride 112 mmol/L (98-107); Estimated Creatinine Clearance 39 ml/min; Glucose 90 mg/dl (70-99); Potassium 3.8 mmol/L (3.5-5.1); Sodium 138 mmol/L (135-145); eGFR > 60.00
[2024-03-29 07:38] LABS: Hematocrit 29.8 % (37.0-47.0); Hemoglobin 9.3 g/dL (12.0-16.0); Mean Corp Hgb Conc. 31.2 g/dL (33.0-37.0); Mean Corpuscular Volume 83.2 fL (81.0-99.0); Mean Platelet Volume 11.7 fL (7.4-10.4); Platelet Count 186 10^3/uL (130-400); Red Blood Cell Count 3.58 10^6/uL (4.20-5.40); Red Cell Dist. Width 14.3 % (11.5-14.5); White Blood Cell Count 5.4 10^3/uL (4.8-10.8)
[2024-03-29 07:49] VITALS: BP 149/62
[2024-03-29] MEDS: CARAFATE 1 GRAM PO ×2 (08:01→11:41)
[2024-03-29] MEDS: PROTONIX 40 MG PO (09:12)
[2024-03-29] MEDS: ASPIR LOW (ENTERIC COATED) 81 MG PO (09:12)
[2024-03-29] MEDS: KCL 20 MEQ PO (09:13)
[2024-03-29] MEDS: MEDROL 4 MG PO (09:13)
[2024-03-29] MEDS: TOPROL XL 25 MG PO (09:13)
[2024-03-29] MEDS: PLAQUENIL 200 MG PO (09:13)
--- NOTE | 2024-03-29 10:59 | PN.CDI ---
CDI
- -
CDI:
Physician Documentation Request
Admit Date: 03/27/24 21:36
Dear Doctor Rebecca,
Patient admitted fo syncope.
03/28 Utility Arborist Assessment: 'Pt meets criteria for moderate protein calorie malnutrition of social and environmental circumstances with >7.5% wt loss x 3months, inadequate intake >3months.'
Based on the information, which of the following most accurately represents the patient's nutritional status?
Moderate protein calorie malnutrition
Other
[place] Criteria ([facility] Hospitalist 2017)
2 or more criteria must be present for either
non severe or severe malnutrition
Note that the criteria differs related to the
presence of an acute or chronic illness
Acute Illness Chronic Illness
Energy Intake Non Severe: <75% for >7 days Non Severe: <75% for >1 month
Severe: <50% for >5 days Severe: <75% for >1 month
Weight Loss Non Severe: 1-2% over 1 week Non Severe: 5% over 1 month
5% over 1 month 7.5% over 3 months
7.5% over 3 months 10% over 6 months
1 year N/A 20% over 1 year
Severe: >2% over 1 week Severe: >5% over 1 month
>5% over 1 month >7.5% over 3 months
>7.5% over 3 months >10% over 6 months
1 year N/A >20% over 1 year
Body Fat Non Severe: Mild Decrease Non Severe: Mild Loss
Severe: Moderate Decrease Severe: Severe Loss
Muscle Mass Non Severe: Mild Decrease Non Severe: Mild Loss
Severe: Moderate Decrease Severe: Severe Loss
Fluid Accumulation Non Severe: Mild Accumulation Non Severe: Mild Accumulation
Severe: Moderate to severe Severe: Moderate to severe
accumulation accumulation
Reduced Beck Tender Strength Non Severe: N/A Non Severe: N/A
Severe: Measurably reduced Severe: Measurably reduced
Use of terms such as suspected, likely, concern for, or probable (associated with a specific diagnosis that is being evaluated, monitored, or treated as if it exists) are acceptable and can be coded in the inpatient setting, when documented at the
time of discharge.
Thank you,
Su Mccormick RN, BSN
CDI Specialist
Available via [facility] text
Please use your independent medical judgment in providing your response.
--- NOTE | 2024-03-29 11:05 | CM ---
Patient seen bedside, discussed plan for discharge home today. Patient reports her son is on his way to bring her home now. CM offered VN to patient, patient declining at this time. CM provided information for stair glide at home. IMM reviewed,
signed, placed in patients chart. CM will continue to follow for discharge planning needs.
Plan; home with family, no needs.
[2024-03-29] MEDS: NORVASC 10 MG PO (11:42)
--- NOTE | 2024-03-29 11:51 | W.DCSUMMARY ---
Discharge Summary
Discharge Data
Date of Admission: 03/27/24
Date of Discharge: 03/29/24
-
Pending Results: No
Hospital Course
79 year old with pMH for PAD s/p L fem bypass, hypertension, DVT presented to us with syncopal episode at home. patient had a syncopal episode last week, while taking shower. she get her head, neck and shoulder she was evaluated by ER physician at
. her Norvasc was increased due to high blood pressure and was sent home. On date of admission she was walking to her room after shower, she synopsized again. her niece got her up from the floor, she passed out in her daughters arm. patient been
complaining of dizzy for past few weeks. she is sleeping more than usual. not eating and drinking very well. denied REDDING. denied chest pain.stated chronic sob. denied abdominal pain, n,nv,d. denied dysuria or hematuria.
patient with positive orthostatics. received fluids. admitting for further management. Of note the patient has been seen by her automotive light mechanic Dr. Rivera in between the 2 syncopal episodes and her pacer was interrogated and found to be functioning
normally. Pacer was again interrogated in the ED found to be normal she did present with some underlying low volume state and responded to IV fluids and initial course of orthostatic blood pressure changes that resolved. She was placed on
thigh-high PEACE stockings I again spoke to cardiology and they can feel that her course and presentation is noncardiogenic. She did present with a prerenal azotemia and a creatinine of 1.4 with a baseline of 0.9 be reached
Discharge after hydration. She has had symptomatic improvement she also further acknowledges lack of oral intake for last couple months in relation to what apparently is underlying depression and we chose at this point to increase her citalopram
dosing from 10 to 20 mg a day this should be assessed further if she has ongoing issues with orthostasis and electrolyte depletion along with poor oral intake and she did also meet criteria for moderate protein calorie malnutrition based on weight
loss in this regard. She should be encouraged to continue usage of thigh-high teds whenever she is out of bed and she acknowledges the need for this prior to her discharge/another consideration would be discontinuation permanently of her furosemide
that she takes as every 48 hours as needed for fluid retention and swelling. Only medication change we did make is the change from 10 mg to 20 mg of side a low pram called into her local pharmacy
Discharge Plan
-
Patient Disposition: Home with Home Care
Discharge Diagnosis/Procedures: Syncopal/noncardiogenic
Orthostatic hypotension/dehydration poor oral intake
Pacer interrogation within normal limits
Underlying depression
Diet: Regular
Activity: As tolerated
Additional Activity: Use of thigh-high PEACE stockings whenever out of bed
Driving Restrictions: As prior to admission
Other Services: VN, PT and OT
Instructions: Orthostatic Hypotension (DC)
Referrals:
Susu Piña RN SURGERY [Family Provider] - in two weeks
Prescriptions:
New
citalopram 10 mg Tablet
20 mg PO QPM Qty: 30 0RF
Continued
sucralfate [Carafate] 1 GM tablet
1 gm PO QID
aspirin [Ecotrin Low Strength] 81 MG tablet,delayed release (DR/EC)
81 mg PO DAILY
pantoprazole 40 MG tablet,delayed release (DR/EC)
40 mg PO BID
levothyroxine 125 MCG tablet
125 mcg PO DAILY@0700
metoprolol succinate 25 MG tablet extended release 24 hr
25 mg PO BID
hydroxychloroquine [Plaquenil] 200 MG tablet
200 mg PO BID
methylprednisolone 4 mg Tablet
4 mg PO DAILY
amlodipine 10 mg Tablet
10 mg PO NOON
furosemide 20 mg Tablet
20 mg PO Q48H@1200
naproxen sodium [Aleve] 220 mg Tablet
220 mg PO DAILY PRN (Reason: mild pain)
potassium chloride [Klor-Con M20] 20 mEq tablet,ER particles/crystals
20 meq PO BID
ezetimibe [Zetia] 10 mg Tablet
10 mg PO QPM
cyanocobalamin (vitamin B-12) [Vitamin B-12] 1,000 mcg Tablet
1,000 mcg PO DAILY
melatonin 5 mg Tablet
5 mg PO HS PRN (Reason: sleep)
Discontinued
citalopram 10 MG tablet
10 mg PO QPM
Discharge Orders:
Discharge Patient (As Directed); Ordered 03/29/24
Ordered By: Arash Fernandez
Discharge Date and Time
Print Language: ROMANIAN
== END 2024-03-29 12:55 | disposition home health service (06) | DRG 683 ==
LOC: 4 WEST ACU 21:36
PROVIDERS: Physician Assistant; Registered Nurse; ADMITTING PHYSICIAN Hospitalist; ATTENDING PHYSICIAN Internal Medicine; EMERGENCY PHYSICIAN Emergency Medicine; FAMILY PHYSICIAN Nurse Practitioner Adult Health
DX: N17.9 Acute kidney failure, unspecified (principal); E44.0 Moderate protein-calorie malnutrition; E86.0 Dehydration; D63.8 Anemia in other chronic diseases classified elsewhere; I10 Essential (primary) hypertension; I89.0 Lymphedema, not elsewhere classified; I73.9 Peripheral vascular disease, unspecified; M06.9 Rheumatoid arthritis, unspecified; F41.9 Anxiety disorder, unspecified; F32.A Depression, unspecified; G62.9 Polyneuropathy, unspecified; I49.5 Sick sinus syndrome; E78.00 Pure hypercholesterolemia, unspecified; E03.9 Hypothyroidism, unspecified; K21.9 Gastro-esophageal reflux disease without esophagitis; Z86.718 Personal history of other venous thrombosis and embolism; Z93.3 Colostomy status; Z95.0 Presence of cardiac pacemaker; Z79.82 Long term (current) use of aspirin
CPT/HCPCS: 71275; 80048; 80053; 80061; 83735; 83880; 84484; 85025; 85027; 93005; 96360; 97162; 99285; Q9967

== ENCOUNTER → 2024-03-31 15:02 | Outpatient (REF) | payer OTHER, SELFPAY | LOC: RAD 15:02 | PROVIDERS: ATTENDING PHYSICIAN Surgery Vascular Surgery; FAMILY PHYSICIAN Nurse Practitioner Adult Health | DX: I77.9 Disorder of arteries and arterioles, unspecified (principal) | CPT/HCPCS: 93922; 93925 ==

== ENCOUNTER → 2024-07-06 09:45 | Outpatient (REF) | payer OTHER, SELFPAY | LOC: RAD 09:45 | PROVIDERS: ATTENDING PHYSICIAN Physician Assistant; FAMILY PHYSICIAN Nurse Practitioner Adult Health | DX: I77.9 Disorder of arteries and arterioles, unspecified (principal) | CPT/HCPCS: 93922; 93925; 93978 ==

== ENCOUNTER → 2025-01-19 15:13 | Outpatient (REF) | payer OTHER, SELFPAY | LOC: RAD 15:13 | PROVIDERS: ATTENDING PHYSICIAN Surgery Vascular Surgery; FAMILY PHYSICIAN Nurse Practitioner Adult Health | DX: I77.9 Disorder of arteries and arterioles, unspecified (principal) | CPT/HCPCS: 93922; 93925 ==

== ENCOUNTER → 2025-07-18 10:08 | Outpatient (REF) | payer OTHER, SELFPAY | LOC: RAD 10:08 | PROVIDERS: ATTENDING PHYSICIAN Registered Nurse; FAMILY PHYSICIAN Nurse Practitioner Adult Health; OTHER PHYSICIAN Surgery Vascular Surgery | DX: I77.9 Disorder of arteries and arterioles, unspecified (principal) | CPT/HCPCS: 93922; 93925; 93978 ==

== ENCOUNTER 2025-08-17 09:11 | Day surgery (SDC) | payer OTHER, SELFPAY ==
[2025-08-17] VITALS (15 sets, daily range): BP systolic 150–180; BP diastolic 49–70; BMI 24.9
[2025-08-17 09:40] LABS: Hematocrit 32.8 % (37.0-47.0); Hemoglobin 9.9 g/dL (12.0-16.0); Mean Corp Hgb Conc. 30.2 g/dL (33.0-37.0); Mean Corpuscular Volume 81.0 fL (81.0-99.0); Platelet Count 241 10^3/uL (130-400); Red Cell Dist. Width 15.9 % (11.5-14.5)
[2025-08-17 09:46] LABS: INR 0.86; PT 12.0 Sec (11.4-14.6)
[2025-08-17 09:47] LABS: APTT 24.9 Sec (23.4-35.0)
[2025-08-17 09:53] LABS: Blood Urea Nitrogen 36 mg/dl (7-17); Calcium 9.5 mg/dl (8.4-10.2); Carbon Dioxide 29 mmol/L (22-30); Chloride 107 mmol/L (98-107); Glucose 76 mg/dl (70-99); Potassium 4.6 mmol/L (3.5-5.1); Sodium 140 mmol/L (135-145); eGFR 37.56
[2025-08-17] MEDS: NSS 500 IV (10:07)
[2025-08-17] MEDS: PLAVIX 300 MG PO (14:21)
--- NOTE | 2025-08-17 14:37 | OR.RPT ---
Operative Report
Operative Report
Date of Operation: 08/17/2025
Pre Op Diagnosis: Possible left lower extremity bypass stenosis on surveillance duplex imaging
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
Procedure:
1. Intravascular lithotripsy to proximal left profunda femoral artery occlusion (Shockwave Javelin)
2. Drug-coated balloon angioplasty of proximal left profunda femoral artery (6 mm x 40 mm Lutonix)
3. Balloon angioplasty and stenting of left profunda femoral artery stenosis (6 mm x 18 mm Express stent)
4. Diagnostic aortobiiliac arteriogram
5. Diagnostic left lower extremity arteriogram
6. Ultrasound guided percutaneous access to the right common femoral artery
Surgeon: Karlo Rodriguez III, MD
Orthotic Aide: Evangelista Alfaro MD PGY2
Anesthesia: Sedation with local
Fluoroscopy:
30.6 min
627 mGy
79.22 gy.cm2
Complications: None
Estimated Blood Loss: Less than 20 cc
History and Indications for Procedure: 80-year-old female with known peripheral arterial occlusive disease and prior left lower extremity bypass. Surveillance duplex imaging suggested a stenosis at the distal anastomosis of the left lower extremity
bypass. She was brought to the operating room for arteriogram and possible endovascular intervention.
Procedure in Detail: Erin Yeh was correctly identified and placed supine on the operating table. After adequate induction of anesthesia the bilateral groins were prepped and draped in the usual sterile fashion. A timeout was performed with
the nursing and anesthesia staff confirming the patient's identity as well as the nature and laterality of the procedure.
The right common femoral artery was identified under ultrasound guidance. The artery was patent. The superior and inferior aspects of the femoral head were identified with radiographic guidance and marked at the skin level. The proposed puncture
site was infiltrated with local anesthesia. Under ultrasound guidance we accessed the right common femoral artery with a micropuncture needle and upsized to a 5 Fr sheath over a Presstlerson wire. The wire and a ShepherDynamics Expert hook flush catheter were
advanced into the distal abdominal aorta and a diagnostic aorto-biiliac arteriogram was performed:
AORTO-ILIAC ARTERIOGRAM:
Aorta: Patent with no significant stenosis identified
Right common iliac artery: Patent with no significant stenosis identified
Right external iliac artery: Patent with no significant stenosis identified
Left common iliac artery: Patent with no significant stenosis identified
Left external iliac artery: Patent with no significant stenosis identified
Under roadmap guidance using a Glidewire and the Circle TechnologyerDynamics Expert hook catheter we selected the left common iliac artery followed by the external iliac artery and then the common femoral artery. A catheter was tracked up and over the aortic bifurcation and
placed in the common femoral artery. A diagnostic left lower extremity arteriogram was then performed which demonstrated the following:
LEFT LOWER EXTREMITY:
Common femoral artery: Patent with no significant stenosis identified. Changes consistent with prior femoral endarterectomy
Profunda femoral artery: Patent stump at the origin but focally occluded proximally. Sluggish distal reconstitution identified
[id number] popliteal artery bypass: Widely patent. Proximal and distal anastomosis widely patent with no stenosis identified
Popliteal artery below the knee patent with no stenosis identified
Tibial artery runoff was the anterior tibial artery and peroneal artery. Posterior tibial artery appeared to be occluded
ENDOVASCULAR INTERVENTION: Systemic heparin was administered. A 5 Faroese 45 cm sheath was advanced over a Storq wire to the left common femoral artery. Using an angled tip catheter and Glidewire we selected the profunda femoral artery. The
proximal occlusion was crossed. The catheter was advanced to the more distal artery and true lumen positioning was confirmed with an arteriogram. I exchanged out for a 0.014 wire.
Due to the heavily calcified nature of the profunda femoral artery disease and in an effort to successfully cross the lesion, modify the calcium and achieve luminal gain with endovascular intervention I elected to proceed with intravascular
lithotripsy with a Shockwave Javelin catheter. The Javelin catheter was brought into position under radiographic guidance over the 0.014 wire. The Javelin catheter was positioned across the focal profunda femoral artery occlusion and lithotripsy
pulses were delivered. 120 pulses were delivered. Subsequent arteriogram demonstrated an improved but suboptimal result. I then followed this with 6 mm x 40 mm Lutonix drug-coated angioplasty balloon. The balloon was positioned in the desired
location under roadmap guidance, inflated to nominal pressure and held in place for 3 minutes. A residual stenosis was identified on subsequent imaging. I then placed a 6 mm x 18 mm Express stent across the residual stenosis. The stent was
deployed by inflating the balloon to nominal pressure. I then postdilated the stent with a 7 mm x 20 mm angioplasty balloon.
Subsequent arteriogram demonstrated a nice technical result. The profunda femoral artery was now patent with good flow. Significant improvement compared to pre-treatment. There was a mild residual profunda femoral artery stenosis in the region of
the stent. The bypass was patent.
Satisfied with this result we concluded the procedure. The sheath tip was pulled back into the right external iliac artery. Protamine was administered. The sheath was pulled and direct manual pressure was held over the puncture site until
hemostasis was achieved. A sterile dressing was applied.
The patient tolerated the procedure well and was taken to the recovery area in stable condition.
Attestation: I was present and responsible for the entire procedure.
Signed:
Karlo Rodriguez III, MD
Vascular Surgery
[facility]
[2025-08-17] MEDS: NSS 1000 IV (14:56)
[2025-08-17] MEDS: TYLENOL 650 MG PO (15:26)
[2025-08-17] MEDS: NORVASC 10 MG PO (17:32)
== END 2025-08-17 18:45 | disposition home or self-care (01) ==
LOC: CATH 09:11
PROVIDERS: ATTENDING PHYSICIAN Surgery Vascular Surgery; OTHER PHYSICIAN Internal Medicine; PRIMARYCARE PHYSICIAN Nurse Practitioner Adult Health
DX: I70.248 Atherosclerosis of native arteries of left leg with ulceration of other part of lower leg (principal); L97.829 Non-pressure chronic ulcer of other part of left lower leg with unspecified severity; I70.211 Atherosclerosis of native arteries of extremities with intermittent claudication, right leg; I10 Essential (primary) hypertension; Z95.820 Peripheral vascular angioplasty status with implants and grafts; E03.9 Hypothyroidism, unspecified; M06.9 Rheumatoid arthritis, unspecified; Z79.82 Long term (current) use of aspirin; Z79.890 Hormone replacement therapy; Z79.899 Other long term (current) drug therapy
CPT/HCPCS: C9765; 75625; 75710; 80048; 85027; 85610; 85730; C1725; C1769; C1876; C1894; C2623; Q9967

== ENCOUNTER → 2025-10-11 13:05 | Outpatient (REF) | payer OTHER, SELFPAY | LOC: RAD 13:05 | PROVIDERS: ATTENDING PHYSICIAN Surgery Vascular Surgery; FAMILY PHYSICIAN Nurse Practitioner Adult Health | DX: I77.9 Disorder of arteries and arterioles, unspecified (principal) | CPT/HCPCS: 93922; 93925 ==

== ENCOUNTER 2025-10-24 14:43 | Emergency (ER) | payer OTHER, SELFPAY ==
[2025-10-24 14:47] VITALS: BP 125/48
--- NOTE | 2025-10-24 16:01 | ED.GENMED ---
History of Present Illness
General
Chief Complaint: Fall
Source: patient and family
Exam Limitations: none
Time Seen by Provider: 10/24/25 15:38
History of Present Illness
History of Present Illness:
Patient fell backwards approximately 2 weeks ago. Hitting her mid back. Complaining of ongoing mid back pain neck pain and some headache. No thinners. No obvious pleuritic pain or shortness of breath no abdominal pain. No extremity numbness
tingling or weakness. Presents primarily at the request of the daughter.
Past History
Past History
ED Past Medical History: HTN, Hypercholesterolemia, Other (peripheral vascular disease) and Other (DVT)
ED Past Surgical History: Appendectomy and Cardiac
Social History
Tobacco: Non-smoker
Alcohol: None
Drug: None
Personal: Single
Living: with family
Family History
Family History: Other
Review of Systems
Review of Systems
All Other Systems: Not applicable
Respiratory: Reports no symptoms
Cardiac: Reports no symptoms
ABD/GI: Reports no symptoms
Phy Exam
Physical Exam
Physical Exam:
TRAUMA EXAM:
VITAL SIGNS: Vital signs reviewed, cooperative
DISTRESS: No active disease
EYES: Pupils reactive, no orbital trauma
NOSE: No deformity or epistaxis
FACE AND SCALP: No scalp or facial trauma, external canals no blood
NECK: Supple mild paracervical tenderness
BACK: Back mild mid back tenderness more on the left. No spinal tenderness. No ecchymosis or abrasion.
RESPIRATORY: No distress, breath sounds normal, no tender chest wall
CARDIAC: No murmur, pulses equal and strong
ABDOMEN: Soft nontender bowel sounds normal
SKIN: Skin intact no bleeding, color normal
EXTREMITIES: Nontender
NEUROLOGICAL: Alert, oriented, no motor deficits
PSYCH: Mood affect normal
Course
Orders/Labs/Results
Orders:
Orders
10/24/25 16:00
CT Cervical Spine W/o Iv Contr Urgent
Comment:
Reason For Exam: post neck/back trauma
CT Chest W/o Iv Contrast Urgent
Comment:
Reason For Exam: post mid back trauma
CT Head W/o Iv Contrast Urgent
Comment:
Reason For Exam: post neck/back trauma
Vital Signs
Initial and Last Documented VS:
Initial Vital Signs
Temp Pulse Resp BP Pulse Ox
97.8 F 71 20 125/48 97
10/24/25 14:47 10/24/25 14:47 10/24/25 14:47 10/24/25 14:47 10/24/25 14:47
Last Documented Vital Signs
Temp Pulse Resp BP Pulse Ox
97.8 F 71 20 125/48 97
10/24/25 14:47 10/24/25 14:47 10/24/25 14:47 10/24/25 14:47 10/24/25 16:03
MDM/Problems Addressed
Differential Diagnosis Includes:
Relatively recent trauma. Clinically stable. Highly doubt any life-threatening issue related to the trauma. However with ongoing neck pain warrants CT cervical spine. Will also CT the head based on the age and mechanism. CT plain of the chest
posteriorly mostly to evaluate the ribs and spine.
*Radiology
Radiology exam reviewed: radiology read reviewed (Negative CT scans)
*Pulse Oximetry
SaO2: 97
Oxygen Mode of Delivery: Room air
Patient hypoxic: no
*Critical Care Note
Total Time (30-74mins, 75-104mins- exclusive of procedures): Not Applicable
Update Note
Update Note:
Patient is remained clinically stable. No serious etiology found for his symptoms. Clearly musculoskeletal and started with a trauma in the fall. Symptomatic treatment and follow-up
ED Attending Note
-
Portions of this chart may have been created with voice recognition software.� Occasional wrong word or��sound alike� substitutions may have occurred due to the inherent limitations of voice recognition software.
Discharge Plan
Departure
Patient Disposition: Home (Routine Discharge)
Date of Disposition: 10/24/25
Time of Disposition: 18:59
Patient with high blood pressure during this ER visit?: Yes
Discharge Problem:
Recent fall, Back contusion
Instructions: Upper Back Pain ED, BLOOD PRESSURE
Prescriptions:
No Action
sucralfate [Carafate] 1 GM tablet
1 gm PO QID
aspirin [Ecotrin Low Strength] 81 MG tablet,delayed release (DR/EC)
81 mg PO DAILY
pantoprazole 40 MG tablet,delayed release (DR/EC)
40 mg PO BID
levothyroxine 125 MCG tablet
125 mcg PO DAILY@0700
metoprolol succinate 25 MG tablet extended release 24 hr
25 mg PO BID
hydroxychloroquine [Plaquenil] 200 MG tablet
200 mg PO BID
methylprednisolone 4 mg Tablet
4 mg PO DAILY
amlodipine 10 mg Tablet
10 mg PO NOON
furosemide 20 mg Tablet
20 mg PO Q48H@1200
potassium chloride [Klor-Con M20] 20 mEq tablet,ER particles/crystals
20 meq PO BID
ezetimibe [Zetia] 10 mg Tablet
10 mg PO QPM
cyanocobalamin (vitamin B-12) [Vitamin B-12] 1,000 mcg Tablet
1,000 mcg PO DAILY
melatonin 5 mg Tablet
5 mg PO HS PRN (Reason: sleep)
citalopram 10 mg Tablet
20 mg PO QPM Qty: 30 0RF
acetaminophen [Tylenol] 325 mg Tablet
650 mg PO Q6H PRN (Reason: PAIN)
rosuvastatin 40 mg Tablet
40 mg PO DAILY
clopidogrel 75 mg Tablet
75 mg PO DAILY Qty: 90 0RF
Referrals:
Susu Piña NP [Family Provider]
Interventions
Interventions:
*Risk Screen - Suicide Last Done: 10/24/25 14:47
*General Assessment Last Done: 10/24/25 14:47
*Neglect/Abuse Screening Last Done: 10/24/25 14:47
*ED- Fall Risk Assessment Last Done: 10/24/25 15:38
*ED COVID-19 Vaccine History Last Done: 10/24/25 15:38
*ED Influenza Vaccine History Last Done: 10/24/25 15:38
ED-Musculoskeletal Assessment Last Done: 10/24/25 15:38
ED- Neurological Assessment Last Done: 10/24/25 15:38
ED-Skin Assessment Last Done: 10/24/25 15:38
Discharge Date and Time
Print Language: GERMAN
== END 2025-10-24 19:07 | disposition home or self-care (01) ==
LOC: EMR 14:43
PROVIDERS: EMERGENCY PHYSICIAN Emergency Medicine; FAMILY PHYSICIAN Nurse Practitioner Adult Health
DX: S20.229A Contusion of unspecified back wall of thorax, initial encounter (principal); M54.2 Cervicalgia; W19.XXXA Unspecified fall, initial encounter; I10 Essential (primary) hypertension; E78.00 Pure hypercholesterolemia, unspecified; Z86.718 Personal history of other venous thrombosis and embolism
CPT/HCPCS: 99284; 70450; 71250; 72125